=== PATIENT | female | born 2000 | race Two or more races ===

== ENCOUNTER → 2024-11-28 | Outpatient (CLI) | payer OTHER | LOC: M WHC 15:19 → EDUNIT# 15:45 | PROVIDERS: ATTEND Obstetrics & Gynecology | DX: O09.213 Supervision of pregnancy with history of pre-term labor, third trimester (principal); O34.33 Maternal care for cervical incompetence, third trimester; O34.219 Maternal care for unspecified type scar from previous cesarean delivery; Z3A.30 30 weeks gestation of pregnancy ==

== ENCOUNTER → 2024-11-28 | Outpatient (CLI) | payer OTHER ==
[2024-11-28 13:38] LABS: PLATELET COUNT, AUTOMATED 293 10^3/uL (150-450)
[2024-11-28 13:41] LABS: GLUCOSE CHALLENGE TEST 1 HOUR 82 MG/DL (LESS THAN 140)
[2024-11-28 14:16] LABS: HIV 1&2 SCREEN NEGATIVE (NEGATIVE)
[2024-11-28 14:24] LABS: HEPATITIS C VIRUS ABY INDEX 0.18 INDEX (<0.8)
[2024-11-28 14:52] LABS: Trichomonas vaginalis (AMP) NOT DETECTED (NEGATIVE)
[2024-11-28 15:16] LABS: GC DNA AMPLIFICATION NEGATIVE (NEGATIVE)
== END ==
LOC: M PLALAB 09:29
PROVIDERS: ATTEND Obstetrics & Gynecology
DX: Z34.93 Encounter for supervision of normal pregnancy, unspecified, third trimester (principal); Z3A.30 30 weeks gestation of pregnancy

== ENCOUNTER 2024-12-14 09:47 | Outpatient (CLI) | payer OTHER ==
[~2024-12-14] VITALS: Ht 170.2 cm; Wt 74.5 kg
[2024-12-14] MEDS ORDERED: OMEP10CASR PO (10:13)
[2024-12-14] MEDS ORDERED: IRON27TA2 PO (10:13)
[2024-12-14] MEDS ORDERED: PROG200C32 VG (10:13)
[2024-12-14] MEDS ORDERED: PRENMIS3 PO (10:13)
[2024-12-14 10:15] VITALS: BP 93/62
[2024-12-14] MEDS ORDERED: ONDANSETRON 4MG 2ML VIAL IV PRN (10:35)
[2024-12-14] MEDS: LACTATED RINGER'S 1000 ML IV STA (10:54)
[2024-12-14] MEDS: BETAMETHASONE SOLUSPAN 6 MG/ML 5 ML VIAL IM SCH (10:55)
[2024-12-14 11:11] LABS: PLATELET COUNT, AUTOMATED 290 10^3/uL (150-450)
[2024-12-14 12:02] LABS: HIV 1&2 SCREEN NEGATIVE (NEGATIVE)
[2024-12-14 12:09] LABS: HEPATITIS C VIRUS ABY INDEX 0.06 INDEX (<0.8)
[2024-12-14] MEDS: LR 1,000 ML IV SCH (12:30)
[2024-12-14 13:13] VITALS: BP 96/59
[2024-12-14 16:08] VITALS: BP 86/48
[2024-12-14 17:58] VITALS: BP 102/58
[2024-12-14 21:09] VITALS: BP 99/61
[2024-12-15 00:49] VITALS: BP 83/51
[2024-12-15 07:28] VITALS: BP 98/54
[2024-12-15 10:20] VITALS: BP 101/60
== END 2024-12-15 11:00 | disposition home or self-care (01) ==
LOC: M LDO 09:47
PROVIDERS: ATTEND Advanced Practice Midwife
DX: O26.853 Spotting complicating pregnancy, third trimester (principal); O47.03 False labor before 37 completed weeks of gestation, third trimester; O34.33 Maternal care for cervical incompetence, third trimester; O34.218 Maternal care for other type scar from previous cesarean delivery; O32.1XX0 Maternal care for breech presentation, not applicable or unspecified; Z3A.32 32 weeks gestation of pregnancy
CPT/HCPCS: 59025; 76815; 76817; 76820; 85027; 86780; 86803; 86850; 86900; 86901; 87389; 96360; 96361; 96372; 96374; G0463; J0702

== ENCOUNTER → 2024-12-19 | Outpatient (CLI) | payer OTHER ==
[~2024-12-19] MED LIST: IRON27TA2 PO; OMEP10CASR PO; PRENMIS3 PO; PROG200C32 VG
== END ==
LOC: M WHC 13:05
PROVIDERS: ATTEND Advanced Practice Midwife
DX: O32.1XX0 Maternal care for breech presentation, not applicable or unspecified (principal); Z3A.33 33 weeks gestation of pregnancy; O26.873 Cervical shortening, third trimester

== ENCOUNTER → 2025-01-03 | Outpatient (REF) | payer OTHER | LOC: M SFHCWAGY 12:40 | PROVIDERS: ATTEND Obstetrics & Gynecology | DX: Z36.85 Encounter for antenatal screening for Streptococcus B (principal); Z3A.35 35 weeks gestation of pregnancy ==

== ENCOUNTER 2025-01-04 09:09 | Outpatient (CLI) | payer OTHER ==
[~2025-01-04] VITALS: Ht 170.2 cm; Wt 76.4 kg
[2025-01-04 09:28] VITALS: BP 103/58
[2025-01-04] MEDS ORDERED: HOME MED LIST COMPLETE! XX SCH (09:35)
== END 2025-01-04 10:20 | disposition home or self-care (01) ==
LOC: M LDO 09:09
PROVIDERS: ATTEND Advanced Practice Midwife
DX: O47.03 False labor before 37 completed weeks of gestation, third trimester (principal); O34.33 Maternal care for cervical incompetence, third trimester; O09.213 Supervision of pregnancy with history of pre-term labor, third trimester; O09.293 Supervision of pregnancy with other poor reproductive or obstetric history, third trimester; O34.219 Maternal care for unspecified type scar from previous cesarean delivery; Z3A.35 35 weeks gestation of pregnancy
CPT/HCPCS: 59025; G0463

== ENCOUNTER 2025-01-04 15:06 | Outpatient (CLI) | payer OTHER ==
[~2025-01-04] VITALS: Ht 170.2 cm; Wt 76.4 kg
== END 2025-01-04 16:04 | disposition home or self-care (01) ==
LOC: M LDO 15:06
PROVIDERS: ATTEND Advanced Practice Midwife
DX: O47.03 False labor before 37 completed weeks of gestation, third trimester (principal); O26.853 Spotting complicating pregnancy, third trimester; O34.33 Maternal care for cervical incompetence, third trimester; O09.213 Supervision of pregnancy with history of pre-term labor, third trimester; O09.293 Supervision of pregnancy with other poor reproductive or obstetric history, third trimester; O34.219 Maternal care for unspecified type scar from previous cesarean delivery; Z3A.35 35 weeks gestation of pregnancy
CPT/HCPCS: 59025; G0463

== ENCOUNTER 2025-01-07 14:29 | Inpatient (IN) | payer OTHER ==
[~2025-01-07] VITALS: Ht 170.2 cm; Wt 74.9 kg
[2025-01-07] VITALS (45 sets, daily range): BP systolic 88–123; BP diastolic 50–67; O2SAT 95–100
[2025-01-07] MEDS ORDERED: HOME MED LIST COMPLETE! XX SCH (14:55)
[2025-01-07] MEDS ORDERED: TUMS500C PO (14:55)
[2025-01-07] MEDS ORDERED: ACET-897 PO (14:55)
[2025-01-07 16:12] LABS: PLATELET COUNT, AUTOMATED 309 10^3/uL (150-450)
[2025-01-07] MEDS ORDERED: OXYTOCIN DRIP 30 UNITS in IV 1 EA IV PRN ×3 (16:30)
[2025-01-07] MEDS ORDERED: LIDOCAINE 1% MDV 20 ML VIAL INFIL PRN (16:30)
[2025-01-07] MEDS ORDERED: OXYTOCIN INJ 10UNITS/ML 1ML VIAL IV PRN (16:30)
[2025-01-07] MEDS ORDERED: TRANEXAMIC ACID INJection 1,000 MG in NS 100 ML IV PRN (16:30)
[2025-01-07] MEDS ORDERED: CARBOPROST TROMETHAMINE 250 MCG/ML AMP IM PRN (16:30)
[2025-01-07] MEDS ORDERED: METHYLERGONOVINE MALEATE 0.2 MG/ML 1 ML VIAL IM PRN (16:30)
[2025-01-07] MEDS ORDERED: OXYTOCIN INJ 10UNITS/ML 1ML VIAL IM PRN (16:30)
[2025-01-07] MEDS ORDERED: MORPHINE PRES-FREE INJ 10 MG/10 ML VIAL As Ordered ONE (16:34)
[2025-01-07] MEDS: LACTATED RINGER'S 1000 ML IV STA (16:42)
[2025-01-07 17:05] LABS: HIV 1&2 SCREEN NEGATIVE (NEGATIVE)
[2025-01-07 17:13] LABS: HEPATITIS C VIRUS ABY INDEX 0.10 INDEX (<0.8)
[2025-01-07] MEDS: LR 1,000 ML IV SCH (17:26)
[2025-01-07] MEDS ORDERED: KETOROLAC 30 MG/ML 1 ML VIAL As Ordered ONE (18:05)
[2025-01-07] MEDS ORDERED: ONDANSETRON 4MG 2ML VIAL As Ordered ONE (18:05)
[2025-01-07] MEDS ORDERED: OXYTOCIN INJ 10UNITS/ML 1ML VIAL As Ordered ONE (18:06)
[2025-01-07] MEDS: BICITRA 30 ML SOLN UDC PO ONE (18:07)
[2025-01-07] MEDS: ceFAZolin SODIUM 2 GM in DEXTROSE 5% (D5W) ADV/MINI-BAG 50 ML IV ONE (18:07)
[2025-01-07] MEDS ORDERED: TRANEXAMIC ACID 100 MG/ML 10ML VIAL As Ordered ONE (19:05)
[2025-01-07] MEDS ORDERED: PHENYLephrine 500MCG 5ML (100MCG/ML) SYRINGE As Ordered ONE (19:18)
[2025-01-07 19:19] LABS: CORD GAS ABE V -4.2; CORD GAS HCO3 V 21.5 MMOL/L; CORD GAS O2 SAT V 81.3 %; CORD GAS PCO2 V 41.6 mmHg; CORD GAS PH V 7.331 UNITS; CORD GAS PO2 V 37.4 mmHg; CORD GAS SBC V 20.6 MMOL/L; CORD GAS TCO2 V 22.8 MMOL/L
[2025-01-07 19:19] LABS: CORD GAS ABE A -4.1; CORD GAS HCO3 A 23.5 MMOL/L; CORD GAS O2 SAT A 61.4 %; CORD GAS PCO2 A 52.7 mmHg; CORD GAS PH A 7.267 UNITS; CORD GAS PO2 A 26.9 mmHg; CORD GAS SBC A 20.3 MMOL/L; CORD GAS TCO2 A 25.1 MMOL/L
[2025-01-07] MEDS ORDERED: MORPHINE 2 MG/ML 1 ML VIAL IV PRN (20:05)
[2025-01-07] MEDS ORDERED: RHOGAM 300MCG (1500IU) INJ IM SCH (20:05)
[2025-01-07] MEDS ORDERED: ONDANSETRON 4MG 2ML VIAL IV PRN (20:05)
[2025-01-07] MEDS ORDERED: SIMETHICONE 80MG CHEW TAB PO PRN (20:05)
[2025-01-07 21:33] LABS: BASO # 0.0 10^3/uL (0.0-0.2); BASO % 0.2 % (0.0-1.0); EOS # 0.1 10^3/uL (0.0-0.5); EOS % 0.3 % (0.0-3.0); LYMPH # 1.4 10^3/uL (1.5-5.0); LYMPH % 8.0 % (24.0-44.0); MONO # 0.8 10^3/uL (0.0-0.8); MONO % 4.8 % (2.0-8.0); NEUTROPHILS # 14.7 10^3/uL (1.5-8.5); NEUTROPHILS % 86.1 % (36.0-66.0); PLATELET COUNT, AUTOMATED 234 10^3/uL (150-450)
[2025-01-07] MEDS ORDERED: REFLB XX ONE (22:06)
[2025-01-08] VITALS (26 sets, daily range): BP systolic 78–101; BP diastolic 48–60; O2SAT 95–99
[2025-01-08] MEDS: KETOROLAC 30 MG/ML 1 ML VIAL IV SCH (01:58)
[2025-01-08 06:40] LABS: PLATELET COUNT, AUTOMATED 228 10^3/uL (150-450)
[2025-01-08] MEDS: PRENATAL VITAMINS CHEWABLE TABLET PO SCH (08:06)
[2025-01-08] MEDS: NS (Normal Saline) 0.9% 1,000 ML IV ONE (08:37)
[2025-01-08 09:20] LABS: C REACTIVE PROTEIN QUANTITATIV 4.81 MG/DL (<1.0)
[2025-01-08 09:35] LABS: CALCIUM LEVEL 7.0 MG/DL (8.5-10.1); CARBON DIOXIDE LEVEL 24 MMOL/L (20-31); CHLORIDE LEVEL 110 MMOL/L (98-107); CREATININE FOR GFR 0.44 MG/DL (0.55-1.30); GLOMERULAR FILTRATION RATE > 90.0 (>60); POTASSIUM SERUM 4.3 MMOL/L (3.5-5.1); SODIUM LEVEL 142 MMOL/L (136-145)
[2025-01-08] MEDS: IBUPROFEN 800 MG TAB PO SCH (21:16)
[2025-01-09 02:00] VITALS: BP 100/58; O2SAT 97
[2025-01-09 06:00] VITALS: BP 93/62; O2SAT 97
[2025-01-09] MEDS: NS (Normal Saline) 0.9% 1,000 ML IV ONE (06:50)
[2025-01-09 07:53] VITALS: BP 93/62; TEMP 97.2; O2SAT 97
[2025-01-09] MEDS ORDERED: MEASLES,MUMPS,RUBELLA VACCINE INJ (MMR-II) SC.IMMUN ONE (09:00)
[2025-01-09] MEDS ORDERED: NS (Normal Saline) 0.9% 1,000 ML IV ONE (09:30)
[2025-01-09] MEDS: IBUPROFEN 400 MG TAB PO ONE (09:30)
[2025-01-09 10:00] VITALS: BP 100/63; O2SAT 100
[2025-01-09 10:07] LABS: PLATELET COUNT, AUTOMATED 269 10^3/uL (150-450)
[2025-01-09 10:16] LABS: ERYTHROCYTE SEDIMENTATION RATE 19 mm/hr (0-20)
[2025-01-09 10:26] VITALS: BP 100/63
[2025-01-09] MEDS: MIDODRINE 5 MG TAB PO ONE (10:26)
[2025-01-09] MEDS: ACETAMINOPHEN 500 MG TAB PO ONE (10:26)
[2025-01-09 10:37] LABS: CALCIUM LEVEL 7.3 MG/DL (8.5-10.1); CARBON DIOXIDE LEVEL 26 MMOL/L (20-31); CHLORIDE LEVEL 108 MMOL/L (98-107); CREATININE FOR GFR 0.55 MG/DL (0.55-1.30); GLOMERULAR FILTRATION RATE > 90.0 (>60); POTASSIUM SERUM 3.8 MMOL/L (3.5-5.1); SODIUM LEVEL 143 MMOL/L (136-145)
[2025-01-09 11:29] LABS: C REACTIVE PROTEIN QUANTITATIV 12.07 MG/DL (<1.0)
[2025-01-09] MEDS ORDERED: ACET-683 PO (12:18)
[2025-01-09] MEDS ORDERED: IBUP80TA PO (12:18)
[2025-01-09 14:00] VITALS: BP 125/60; O2SAT 99
== END 2025-01-09 15:00 | disposition home or self-care (01) | DRG 784 ==
LOC: M LDO 14:29 → M LDI 16:25 → M ICU 20:18 → M OBS 23:37 → M LDI 01-08 00:03 → M OBS 01-08 11:17
PROVIDERS: ADMIT Obstetrics & Gynecology; ATTEND Obstetrics & Gynecology
PROC: 0UB70ZZ Excision of Bilateral Fallopian Tubes, Open Approach (ICD-10-PCS; 2025-01-07)
PROC: 0UBC7ZZ Excision of Cervix, Via Natural or Artificial Opening (ICD-10-PCS; 2025-01-07)
PROC: 30233N1 Transfusion of Nonautologous Red Blood Cells into Peripheral Vein, Percutaneous Approach (ICD-10-PCS; 2025-01-07)
PROC: 10D00Z0 Extraction of Products of Conception, High, Open Approach (ICD-10-PCS; principal; 2025-01-07 18:40)
DX: O34.211 Maternal care for low transverse scar from previous cesarean delivery (principal); O72.1 Other immediate postpartum hemorrhage; D62 Acute posthemorrhagic anemia; Z30.2 Encounter for sterilization; O32.8XX0 Maternal care for other malpresentation of fetus, not applicable or unspecified; I95.81 Postprocedural hypotension; Z37.0 Single live birth; Z3A.36 36 weeks gestation of pregnancy; O34.30 Maternal care for cervical incompetence, unspecified trimester; Z79.899 Other long term (current) drug therapy; O99.03 Anemia complicating the puerperium

== ENCOUNTER → 2025-05-11 | Outpatient (REF) | payer OTHER ==
[~2025-05-11] MED LIST changes: +ACET-683 PO; +ACET-897 PO; +IBUP80TA PO; +TUMS500C PO
[2025-05-13 12:52] LABS: HPV APTIMA Not Detected (Not Detected)
== END ==
LOC: M SFHCWAGY 17:21
PROVIDERS: ATTEND Physician Assistant
DX: Z12.4 Encounter for screening for malignant neoplasm of cervix (principal)
CPT/HCPCS: 87624; G0123